=== PATIENT | female | born 1975 | race Caucasian/White ===

== ENCOUNTER 2017-04-23 14:06 | Emergency (ER) | payer OTHER ==
[2017-04-23] MEDS ORDERED: Sodium Chloride 0.9% 10 ML Syringe FLUSH PRN (14:08)
--- NOTE | 2017-04-23 14:15 | EDM.PDOC ---
ED HPI GENERAL MEDICAL PROBLEM - General Chief Complaint: Trauma Stated Complaint: FALL, HIT HEAD ON BLEACHERS Time Seen by Provider: 04/23/17 14:07 Source of Information: Reports: Patient, EMS, EMS Notes Reviewed, Old Records ( [facility] chart/EMR), Other (EMR-[facility]) History Limitations: Reports: No Limitations - History of Present Illness INITIAL COMMENTS - FREE TEXT/NARRATIVE: The patient was brought to the emergency room via basic ambulance transfer and full spinal and cervical immobilization and cervical collar with no other treatment in route. At about 13:30 hours this afternoon the patient was running in the school gym in [place] when she fell and hit the left side of her face on the bleachers with possible brief loss of consciousness, left facial pain, right lateral neck pain, right hip pain, right low back pain, and right shoulder pain. She does remember getting up, however does not remember other details of the accident. She rates her multiple areas of discomfort at 3-5/10. The patient denies any chest pain/pressure, heart flutter, orthostasis, orthopnea, diaphoresis, paresthesias, recent decreased exercise tolerance, or any other anginal-type symptoms. No recent history of abdominal pain, heartburn , nausea, diarrhea, melena, or any food intolerance, including fatty foods, etc. , although she did have some nonspecific mild gross hematochezia about 3 days ago that has resolved. The patient also denies any recent fever, cough, wheezing , dyspnea, etc., although she has had some mild dizziness since the above injury with her Mnire's disease otherwise stable recently with no severe attack for one year. Onset: Today, Sudden Onset Date: 04/23/17 Onset Time: 13:30 Duration: Constant Location: Reports: Head, Face, Neck, Back, Pelvis, Upper Extremity, Right. Denies: Chest, Abdomen, Radiates to Quality: Reports: Ache, Same as Previous Episode, Sharp Severity: Moderate Improves with: Reports: Rest Worsens with: Reports: Movement Context: Reports: Trauma (As above) Associated Symptoms: Reports: Confusion (Brief incidental examination), Headaches. 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: Cervical Collar, Spinal Immobilization - Related Data Allergies Allergy/AdvReac Type Severity Reaction Status Date / Time bee venom protein (honey bee) Allergy Other Verified 04/23/17 14:33 oxycodone Allergy Hallucinati Verified 04/23/17 14:33 ons tomato Allergy GI Verified 04/23/17 14:40 intolerence Home Meds: Home Meds Albuterol [Ventolin HFA] 8 gm INH Q4H PRN 04/23/17 [History] Albuterol/Ipratropium [DuoNeb 3.0-0.5 MG/3 ML] 3 ml NEB QID 04/23/17 [History] Cyclobenzaprine [Flexeril] 10 mg PO TID PRN 04/23/17 [History] EPINEPHrine [Epipen] 0.3 mg IM ONETIME PRN 04/23/17 [History] Furosemide [Lasix] 20 mg PO DAILY 04/23/17 [History] Meclizine [Antivert] 25 mg PO TID PRN 04/23/17 [History] Meloxicam 15 mg PO DAILY 04/23/17 [History] Ondansetron HCl [Zofran] 4 mg PO Q8H PRN 04/23/17 [History] Potassium Chloride 10 meq PO DAILY 04/23/17 [History] Propranolol [Inderal] 10 mg PO DAILY 04/23/17 [History] Ranitidine [Zantac] 150 mg PO BID 04/23/17 [History] SUMAtriptan Succinate [Imitrex] 6 mg SQ ASDIRECTED PRN 04/23/17 [History] traMADol [Ultram] 50 mg PO Q6H PRN 04/23/17 [History] Past Medical History HEENT History: Reports: Allergic Rhinitis, Impaired Vision, Other (See Below). Denies: Cataract, Glaucoma, Hard of Hearing, Macular Degeneration, Retinal Detachment Other HEENT History: Mnire's disease, occasional glasses when driving at night , severe reaction to bee stings with patient carrying EpiPen Cardiovascular History: Reports: Arrhythmia, Other (See Below). Denies: Afib, Aneurysm, Blood Clots/VTE/DVT, CAD, Heart Failure, Heart Murmur, Hypertension, ID, Pulmonary Hypertension, PVD, Syncope Other Cardiovascular History: Chronic dependent edema, sinus bradycardia secondary to medical therapy, mild aortic valve insufficiency and other nonclinical diffuse valvular disease with no pulmonary hypertension by echocardiogram Respiratory History: Reports: Asthma. Denies: Intubation, Previous, PE, Pneumothorax, Sleep Apnea Gastrointestinal History: Reports: Cholelithiasis, GERD, Other (See Below). Denies: Celiac Disease, Chronic Constipation, Chronic Diarrhea, GI Bleed, Hepatitis, Hiatal Hernia, Inflammatory Bowel Disease, Irritable Bowel Syndrome, Jaundice, Pancreatitis, PUD Other Gastrointestinal History: Milk intolerance Genitourinary History: Reports: None. 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 Denies: Endometriosis, Fibroids, Spontaneous : 3 Para: 3 (One delivery at 30 weeks gestation with otherwise full term without other complications during or delivery) LMP (Approximate): Menopausal (Surgical menopause secondary to dysmenorrhea with history of benign ovarian cysts) Musculoskeletal History: Reports: Arthritis, Back Pain, Chronic, Fracture, Neck Pain, Chronic, Osteoarthritis, Other (See Below). Denies: Amputation, Gout, Osteoporosis, RA, SLE Other Musculoskeletal History: Initial right ankle fracture at about age 10 with subsequent Right ankle fracture in 1992 with surgery as below, chronic right knee pain with history of chondromalacia and right patellar subluxation in November 2013 Neurological History: Reports: Headaches, Chronic, Migraines, Other (See Below) . Denies: Cerebral Aneurysms, Concussion, CVA, Head Trauma, MS, Parkinson's, Seizure, TIA Other Neuro History: Beta sienna therapy for her migraines Psychiatric History: Reports: None. Denies: Abuse, Victim of, Addiction, Anxiety, Depression, Psych Hospitalization(s), PTSD, Suicide Attempt Endocrine/Metabolic History: Reports: Obesity/BMI 30+. Denies: Diabetes, Type I , Diabetes, Type II, Hypothyroidism, IDDM Hematologic History: Reports: None. Denies: Anemia, Blood Transfusion(s), Iron Deficiency Immunologic History: Reports: None. Denies: AIDS, HIV, SLE Oncologic (Cancer) History: Reports: None. Denies: Basal Cell Carcinoma, Cervix , Hodgkin's Lymphoma, Leukemia, Lymphoma, Malignant Melanoma, Non-Hodgkin's Lymphoma Dermatologic History: Reports: Urticaria, Other (See Below). Denies: Angiodema , Eczema, Psoriasis Other Dermatologic History: Severe urticaria secondary to bee stings - Infectious Disease History Infectious Disease History: Reports: Chicken Pox, Shingles (Right lower thoracic /upper lumbar shingles in about 1995). Denies: C-Difficile, Measles, Meningitis , Mononucleosis, MRSA, Mumps, Pertussis (Whooping Cough), Rheumatic Fever, Rubella, Scarlet Fever, TB, VRE - Past Surgical History Head Surgeries/Procedures: Reports: None HEENT Surgical History: Reports: Other (See Below). Denies: Adenoidectomy, Cataract Surgery, Eye Surgery, Laser Surgery, LASIK, Myringotomy w Tube(s), Naso -Sinus Surgery, Oral Surgery, Tonsillectomy Other HEENT Surgeries/Procedures: [place] teeth extraction x4 in 1993 Cardiovascular Surgical History: Reports: None. Denies: Varicose Respiratory Surgical History: Reports: None. Denies: Thoracentesis GI Surgical History: Reports: Appendectomy, Cholecystectomy, Other (See Below). Denies: Colonoscopy, Hernia, Abdominal, Hernia, Inguinal, Hernia Repair/Other Other GI Surgeries/Procedures: Laparoscopic cholecystectomy on 01/01/05, appendectomy in 1992 Female Surgical History: Reports: Hysterectomy, Other (See Below). Denies: Breast Biopsy, Tubal Ligation Other Female Surgeries/Procedures: Open partial hysterectomy in 1997 secondary to dysfunctional uterine bleeding Endocrine Surgical History: Reports: None. Denies: Thyroid Biopsy Neurological Surgical History: Reports: None. Denies: C-Spine, Laminectomy, Lumbar Spine, Spinal Fusion, Vertebroplasty Musculoskeletal Surgical History: Reports: Arthroscopic Knee, Arthroscopic Procedure, Other (See Below). Denies: Carpal Tunnel, Ganglion Cyst, Joint Replacement, ORIF, Shoulder Surgery Other Musculoskeletal Surgeries/Procedures:: Right ankle tendon and ligamental surgery in 1992 secondary to a minor ankle fracture, right knee arthroscopic meniscal repairs initially in 2014 then in 2016 Oncologic Surgical History: Reports: None Dermatological Surgical History: Reports: None - Past Imaging History Past Imaging History: Reports: Bone Scan (Limited bone scan of the thoracic and lumbar spines and upper pelvis on 07/01/14, limited bone scan of the lower extremities bilaterally on 08/14/12), Cardiac Echo (Echocardiogram on 01/11/17 with ejection fraction of greater than 70% and only mild nonclinical diffuse valvular disease as above), Mammogram (Last mammogram on 03/07/17), MRI (Last MRI of the right knee on 11/03/13 with previous evaluations on 03/14/11 and 10/18/08) , PFT (Last PFTs on 03/07/17), Ultrasound (Right upper quadrant gallbladder ultrasound on 12/18/07 positive for cholelithiasis, previous negative abdominal ultrasound on 03/20/05, ultrasound of the right forearm on 09/04/06 with diagnosis of lipoma) Social & Family History - Tobacco Use Smoking Status *Q: Never Smoker Smoking Cessation Information Provided To Patient: No Second Hand Smoke Exposure: No Second Hand Smoke Education Provided: No - Caffeine Use Caffeine Use: Reports: Tea (2 Glasses of tea per month). Denies: Coffee, Energy Drinks, Soda - Alcohol Use Alcohol Use History: Yes Days Per Week of Alcohol Use: 2 (No previous DWIs, problems with alcohol abuse, etc.) Number of Drinks Per Day: 3 (Usually mixed drinks or wine) Total Drinks Per Week: 6 Alcohol Use Frequency: Socially - Recreational Drug Use Recreational Drug Use: No Drug Use in Last 12 Months: No Recreational Drug Type: Denies: Amphetamines (Speed), Cocaine, Heroin, Inhalants (Glues, Solvents, Aerosols), LSD (Acid), Marijuana/Hashish, Methamphetamine - Living Situation & Occupation Living situation: Reports: (2002 to her second with no children from this relationship, from first and 2001 with 3 children from that relationship), with Family () 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 Denies: Chills, Diaphoresis, Fever, Weakness Eyes: Denies: Blurred Vision, Drainage, Decreased Acuity, Foreign Body Sensation , Inflammation, Pain, Photophobia, Vision Change Ears: Reports: Dizziness (With head movement and history of Mnire's disease), Pain, Bloody Discharge (Questionable left otorrhea). Denies: Tinnitus, Clear Discharge, Previous Injury Nose: Reports: No Symptoms. Denies: Clots, Congestion, Pain, Bloody Discharge, Clear Discharge, Previous Injury Mouth/Throat: Reports: No Symptoms. Denies: Bleeding, Clots, Lip Swelling, Tongue Swelling, Loose Teeth, Pain, Throat Swelling, Hoarse Voice, Muffled Voice , Difficulty Swallowing, Previous Injury Respiratory: Reports: No Symptoms. Denies: Shortness of Breath, Wheezing, Pleuritic Chest Pain, Cough Cardiovascular: Reports: Edema (Stable chronic dependent), Lightheadedness. Denies: Chest Pain, Irregular Heart Rate, Palpitations, Syncope GI/Abdominal: Reports: Bloody Stool (Mild Gross hematochezia about 3 days ago with spontaneous resolution), Other (Nonspecific right pelvic and right hip pain ). Denies: Abdominal Pain, Constipation, Decreased Appetite, Diarrhea, Hematemesis, Nausea, Vomiting Genitourinary: Reports: No Symptoms. Denies: Dysuria, Hematuria, Incontinence, Painful Urination, Vaginal Bleeding Musculoskeletal: Reports: Neck Pain (Right lateral), Shoulder Pain (Right), Back Pain (Right lumbar). Denies: Arm Pain, Joint Swelling, Muscle Pain, Muscle Stiffness Skin: Reports: Bruising (Left mandibular region as below), Wound (Left ventricular abrasion as below). Denies: Pallor, Diaphoresis Neurological: Reports: Dizziness, Headache, Other (Possible brief loss of consciousness). Denies: Confusion, Numbness, Paresthesia, Seizure, Tingling, Trouble Speaking, Weakness, Change in Speech, Gait Disturbance Psychiatric: Denies: Confusion, Depression, Anxiety, Agitation, Hallucinations ED EXAM, TRAUMA (MAJOR/MULTI) - Physical Exam Exam: See Below Exam Limited By: No Limitations General Appearance: Alert, WD/WN, No Apparent Distress Head: Normocephalic, Facial Ecchymosis (Mild left lateral mandibular/ infraorbital ecchymosis), Facial Swelling (Mild left infraorbital). No: Scalp Lacerations, Scalp Ecchymosis, Scalp Hematoma, Scalp Tenderness, Pedro's Sign, Facial Lacerations, Sinus Tenderness, Raccoon Eyes Eyes: Left Eye: Other (Moderate right infraorbital palpation pain with mild swelling and no evidence of deformity or crepitation), Bilateral Eye: EOMI, Normal Fundi (No nystagmus), PERRL (5 mm diameter bilateral) Ears: Normal Canal, Hearing Grossly Normal, Normal TMs, Auricular Tenderness ( Mild localized palpation pain at the site of the inferior left 0.25 cm in diameter abrasion with minimal bloody spotting). No: Auricular Ecchymosis, Mastoid Swelling, Mastoid Tenderness, Canal Discharge, TM Blood, TM Fluid, TM Perforation Nose: Normal Inspection, Normal Mucousa, No Blood. No: Clear Rhinorrhea Throat/Mouth: Normal Inspection, Normal Lips, Normal Teeth, Normal Gums, Normal Oropharynx, Normal Voice, No Airway Compromise Neck: Full Range of Motion, Normal Alignment, Muscle Spasm (Minimal right lateral), Painful Range of Motion (Minimal), Tenderness (Minimal right lateral palpation pain), Tender Lateral (As above) Cardiovascular: Normal Peripheral Pulses, Regular Rate, Rhythm, No Edema, No Gallop, No JVD, No Murmur, No Rub. No: Gallop/S3, Gallop/S4, Friction Rub Respiratory/Chest: No Respiratory Distress, Lungs Clear, Normal Breath Sounds, No Accessory Muscle Use, Chest Non-Tender. No: Pleural Rub, Retractions, Flail Chest GI/Abdominal: Normal Bowel Sounds, Soft, Non-Tender, No Organomegaly, No Distention, No Abnormal Bruit, No Mass, Pelvis Stable, Other (obese) (Female) Exam: Deferred Rectal (Female) Exam: Normal Exam, Normal Rectal Tone, Heme - Stool. No: Tenderness (No Brice space tenderness) Back: Muscle Spasm (Mild left mid lateral lumbar), Paraspinal Tenderness (Mild lateral lumbar). No: CVA Tenderness (R), CVA Tenderness (L) Neurologic: No Motor/Sensory Deficits, Alert, Normal Mood/Affect, Oriented x 3, Other (Mild incidental amnesia as above, Negative Babinski's, finger to nose, and pronator rotation tests. No evidence of facial paresis, tongue deviation, orthostasis, etc.. Excellent reverse thought processes.) Skin: Warm/Dry, Ecchymosis (As above with additional 1-2 cm mild ecchymosis of the left buttocks). No: Diaphoresis, Pallor, Petechiae - [place] Coma Score Best Eye Response (Agatha): (4) Open Spontaneously Best Verbal Response (Agatha): (5) Oriented Best Motor Response (Agatha): (6) Obeys Commands Agatha Total: 15 EKG INTERPRETATION EKG Date: 04/23/17 Time: 15:55 Rhythm: NSR Rate (beats/min): 59 [place]: normal (Left cardiac axis) P-wave: present QRS: normal (QRS interval 0.08 seconds representing repolarization changes) ST-T: other (T-wave inversion in leads 3 and V1 through V3) QT: normal MA/PQ Interval: 0.15 seconds with pulmonary hypertension by EKG Comparison: no change (Since last EKG on 02/13/12) EKG Interpretation Comments: 1. Questionable stable anterior wall cardiac ischemia 2. No acute ischemic changes 3. Pulmonary hypertension by EKG Course - Vital Signs Last Recorded V/S: Last Vital Signs Temp 36.8 C 04/23/17 15:30 Pulse 66 04/23/17 15:30 Resp 20 04/23/17 15:30 BP 117/71 04/23/17 15:30 Pulse Ox 100 04/23/17 15:30 See Trauma sheet - Orders/Labs/Meds Orders: Active Orders 24 hr Category Date Time Status Cardiac Monitoring [RC] . DIRECTED Care 04/23/17 14:08 Active EKG Documentation Completion [RC] ASDIRECTED Care 04/23/17 14:08 Active Oxygen Therapy, ED [RC] CONTINUOUS Care 04/23/17 14:08 Active Peripheral IV Care [RC] . DIRECTED Care 04/23/17 14:08 Active Pulse Oximetry [RC] CONTINUOUS Care 04/23/17 14:08 Active Up With Assistance [RC] PFP Care 04/23/17 14:08 Active Vital Signs [RC] PFP Care 04/23/17 14:08 Active Nothing per Oral Now Diet [DIET] Diet 04/23/17 Breakfast Active Cervical Spine 1V [CR] Stat Exams 04/23/17 14:08 Ordered Cervical Spine wo Cont [CT] Stat Exams 04/23/17 14:08 Ordered Chest 1V Frontal [CR] Stat Exams 04/23/17 14:08 Ordered Head wo Cont [CT] Stat Exams 04/23/17 14:08 Ordered Hip Min 2V or 3V w Pelvis Rt [CR] Stat Exams 04/23/17 14:16 Ordered Lumbar Spine 2 or 3V [CR] Stat Exams 04/23/17 14:15 Ordered Max Facial Sinus wo Cont [CT] Stat Exams 04/23/17 14:08 Stop Req Shoulder Comp Rt [CR] Stat Exams 04/23/17 14:10 Ordered CULTURE URINE [RM] Urgent Lab 04/23/17 14:08 Uncollected LACTIC ACID [CHEM] Stat Lab 04/23/17 14:08 Ordered Sodium Chloride 0.9% [Saline Flush] Med 04/23/17 14:08 Active 10 ml FLUSH ASDIRECTED PRN Obtain Past Medical Record [OM.PC] Urgent Oth 04/23/17 14:08 Active Peripheral IV Insertion Adult [OM.PC] Stat Oth 04/23/17 14:08 Ordered Resuscitation Status Stat Resus Stat 04/23/17 14:08 Ordered Medication Orders Sodium Chloride (Saline Flush) 10 ml FLUSH ASDIRECTED PRN PRN Reason: Keep Vein Open Labs: Laboratory Tests 04/23/17 04/23/17 04/23/17 Range/Units 15:25 15:25 15:25 WBC 10.5 H (4.0-10.2) K/uL RBC 4.45 (3.77-5.09) M/uL Hgb 13.7 (11.7-15.5) g/dL Hct 41.7 (34.0-46.0) % MCV 93.7 (84.0-98.0) fL MCH 30.8 (28.2-33.3) pg MCHC 32.9 (31.7-36.0) g/dL RDW 12.1 (11.2-14.1) % Plt Count 219 (150-350) K/uL Neut % (Auto) 71.9 (45.0-80.0) % Lymph % (Auto) 20.6 (10.0-50.0) % [place] % (Auto) 5.4 (2.0-14.0) % Eos % (Auto) 1.1 (0.0-5.0) % Baso % (Auto) 1.0 (0.0-2.0) % Neut # (Auto) 7.55 H (1.40-7.00) K/uL Lymph # (Auto) 2.17 (0.50-3.50) K/uL [place] # (Auto) 0.57 (0.00-1.00) K/uL Eos # (Auto) 0.12 (0.00-0.50) K/uL Baso # (Auto) 0.10 (0.00-0.20) K/uL PT 11.4 (9.8-11.7) SEC INR 1.1 APTT 26.6 (23.5-30.0) SEC Sodium 144 (136-145) mmol/L Potassium 3.5 (3.5-5.1) mmol/L Chloride 107 (98-107) mmol/L Carbon Dioxide 28.1 (21.0-32.0) mmol/L BUN 17 (7-18) mg/dL Creatinine 0.69 (0.51-1.17) mg/dL Est Cr Clr Drug Dosing 102.23 mL/min Estimated GFR (MDRD) > 60 mL/min Glucose 89 (74-106) mg/dL Uric Acid 4.5 (2.6-7.2) mg/dL Calcium 9.4 (8.5-10.1) mg/dL Magnesium 1.9 (1.8-2.4) mg/dL Total Bilirubin 0.4 (0.2-1.0) mg/dL AST 13 L (15-37) U/L ALT 16 (12-78) U/L Alkaline Phosphatase 69 (46-116) IU/L Creatine Kinase 64 (26-308) U/L Creatine Kinase Index 0.8 (0.0-2.5) % CK-MB (CK-2) 0.50 (0.00-3.60) ng/mL Troponin I 0.000 (0.000-0.056) ng/mL Total Protein 7.1 (6.4-8.2) g/dL Albumin 3.8 (3.4-5.0) g/dL Amylase 53 (25-115) U/L Lipase 116 (73-393) U/L Specimen Type Urine Color Urine Appearance Urine pH (5.0-9.0) Ur Specific [place] (1.005-1.030) Urine Protein (NEGATIVE) mg/dL Urine Glucose (UA) (NEGATIVE) mg/dL Urine Ketones (NEGATIVE) mg/dL Urine Occult Blood (NEGATIVE) Urine Nitrite (NEGATIVE) Urine Bilirubin (NEGATIVE) Urine Urobilinogen (0.2-1.0) E.U./dL Ur Leukocyte Esterase (NEGATIVE) Urine RBC /HPF Urine WBC /HPF Ur Epithelial Cells /LPF Urine Bacteria (NONE TO FEW) /HPF Urine Opiates Screen (NEGATIVE) Urine Methadone Screen (NEGATIVE) U Acetaminophen Screen (NEGATIVE) Ur Barbiturates Screen (NEGATIVE) Ur Tricyclics Screen (NEGATIVE) Ur Phencyclidine Scrn (NEGATIVE) Ur Amphetamine Screen (NEGATIVE) U Methamphetamines Scrn (NEGATIVE) U Benzodiazepines Scrn (NEGATIVE) U Cocaine Metab Screen (NEGATIVE) U Marijuana (THC) Screen (NEGATIVE) Ethyl Alcohol 0.002 (0.000-0.080) g/dL 04/23/17 04/23/17 Range/Units 15:25 15:25 WBC (4.0-10.2) K/uL RBC (3.77-5.09) M/uL Hgb (11.7-15.5) g/dL Hct (34.0-46.0) % MCV (84.0-98.0) fL MCH (28.2-33.3) pg MCHC (31.7-36.0) g/dL RDW (11.2-14.1) % Plt Count (150-350) K/uL Neut % (Auto) (45.0-80.0) % Lymph % (Auto) (10.0-50.0) % [place] % (Auto) (2.0-14.0) % Eos % (Auto) (0.0-5.0) % Baso % (Auto) (0.0-2.0) % Neut # (Auto) (1.40-7.00) K/uL Lymph # (Auto) (0.50-3.50) K/uL [place] # (Auto) (0.00-1.00) K/uL Eos # (Auto) (0.00-0.50) K/uL Baso # (Auto) (0.00-0.20) K/uL PT (9.8-11.7) SEC INR APTT (23.5-30.0) SEC Sodium (136-145) mmol/L Potassium (3.5-5.1) mmol/L Chloride (98-107) mmol/L Carbon Dioxide (21.0-32.0) mmol/L BUN (7-18) mg/dL Creatinine (0.51-1.17) mg/dL Est Cr Clr Drug Dosing mL/min Estimated GFR (MDRD) mL/min Glucose (74-106) mg/dL Uric Acid (2.6-7.2) mg/dL Calcium (8.5-10.1) mg/dL Magnesium (1.8-2.4) mg/dL Total Bilirubin (0.2-1.0) mg/dL AST (15-37) U/L ALT (12-78) U/L Alkaline Phosphatase (46-116) IU/L Creatine Kinase (26-308) U/L Creatine Kinase Index (0.0-2.5) % CK-MB (CK-2) (0.00-3.60) ng/mL Troponin I (0.000-0.056) ng/mL Total Protein (6.4-8.2) g/dL Albumin (3.4-5.0) g/dL Amylase (25-115) U/L Lipase (73-393) U/L Specimen Type Urincc Urine Color Yellow Urine Appearance Clear Urine pH 5.5 (5.0-9.0) Ur Specific [place] 1.020 (1.005-1.030) Urine Protein Negative (NEGATIVE) mg/dL Urine Glucose (UA) Negative (NEGATIVE) mg/dL Urine Ketones Negative (NEGATIVE) mg/dL Urine Occult Blood Negative (NEGATIVE) Urine Nitrite Negative (NEGATIVE) Urine Bilirubin Negative (NEGATIVE) Urine Urobilinogen 0.2 (0.2-1.0) E.U./dL Ur Leukocyte Esterase Negative (NEGATIVE) Urine RBC 0-5 /HPF Urine WBC 0-5 /HPF Ur Epithelial Cells Rare /LPF Urine Bacteria Rare (NONE TO FEW) /HPF Urine Opiates Screen Negative (NEGATIVE) Urine Methadone Screen Negative (NEGATIVE) U Acetaminophen Screen Negative (NEGATIVE) Ur Barbiturates Screen Negative (NEGATIVE) Ur Tricyclics Screen Negative (NEGATIVE) Ur Phencyclidine Scrn Negative (NEGATIVE) Ur Amphetamine Screen Negative (NEGATIVE) U Methamphetamines Scrn Negative (NEGATIVE) U Benzodiazepines Scrn Negative (NEGATIVE) U Cocaine Metab Screen Negative (NEGATIVE) U Marijuana (THC) Screen Negative (NEGATIVE) Ethyl Alcohol (0.000-0.080) g/dL Microbiology 04/23/17 15:19 Stool Occult Blood (BOOGIE) - Final Stool / Feces NEGATIVE OCCULT BLOOD Meds: Medications Generic Name Dose Route Start Last Admin Trade Name Freq PRN Reason Stop Dose Admin Sodium Chloride 10 ml 04/23/17 14:08 Saline Flush FLUSH ASDIRECTED PRN Keep Vein Open - Radiology Interpretation Free Text/Narrative:: Chest x-ray, portable, shows evidence of mild pulmonary obstructive disease with probable pulmonary hypertension and right middle lobe atelectasis with moderate cardiomegaly and prominence of the proximal aortic arch with no rib fractures, pneumothorax, etc. Additional atelectasis noted in the upper mediastinum with no evidence of CHF or other significant pulmonary infiltrates Cervical spine, 1 view-lateral, was suboptimal with decreased lordosis but no evidence of acute fracture or subluxation X-rays of the pelvis, one view, and 2 views of the right hip, shows evidence of mild osteoarthritic changes but no fracture or subluxation X-rays of the lumbar spine, 3 views, shows mild osteoarthritic changes with no evidence of acute fracture or dislocation. Mild decreased lordosis present X-rays of the right shoulder, complete, shows mild osteoarthritic changes with no evidence of fracture, dislocation, etc. Telephone consultation initially at 15:06 hours with repeat consultation at 15: 15 hours with the radiology department at [facility] with negative preliminary verbal reports of CT of the head without contrast, CT of the cervical spine with no contrast, and CT of the maxillofacial region without contrast with exception of some mild facial contusions lunchroom monitor shows occasional mild sinus bradycardia in the mid to upper 50s with average heart rate in the high 50s to low 60s with no ectopy or arrhythmia CT Results Date: 04/23/17 CT Results Time: 15:06 Departure - Departure Time of Disposition: 16:25 Disposition: Home, Self-Care 01 Condition: good Clinical Impression: Trauma, Peptic reflux disease Asthma Qualifiers: Asthma severity: mild intermittent Asthma complication type: uncomplicated Qualified Code(s): J45.20 - Mild intermittent asthma, uncomplicated Osteoarthritis Qualifiers: Osteoarthritis location: multiple joints Osteoarthritis type: primary Qualified Code(s): M15.0 - Primary generalized (osteo)arthritis Head concussion Qualifiers: Encounter type: initial encounter Loss of consciousness presence/duration: with LOC of 30 min or less Qualified Code(s): S06.0X1A - Concussion with loss of consciousness of 30 minutes or less, initial encounter Contusion Qualifiers: Encounter type: initial encounter Contusion area: head Contusion of head detail : orbital tissues Laterality: left Qualified Code(s): S05.12XA - Contusion of eyeball and orbital tissues, left eye, initial encounter - Discharge Information Instructions: Concussion, Adult, [id number], Contusion, [id number] Referrals: Tonny Ayala, PA [Primary Care Provider] - Forms: ED Department Discharge, Return to Work/School Form Additional Instructions: 1. Follow up with your regular provider in 10-14 days as needed, if symptoms persist. 2. Head precautions as directed-see form. 3. Tylenol 650 mg by mouth every 4 hours when necessary as directed. 4. BenGay or equivalent, heating pad, and/or ice packs as directed. 5. Work excuse- See Form - Problem List & Annotations (1) Head concussion SNOMED Code(s): 820532419 Code(s): S06.0X9A - CONCUSSION W LOSS OF CONSCIOUSNESS OF UNSP DURATION, INIT Status: Acute Priority: High Current Visit: Yes Onset Date: Annotation/Comment:: Trauma code called by this provider with provider in house at time of patient's arrival. Note that IV access was not obtained until after CT scan results were received as above with disorder discontinued. Workmen's Compensation and work excuse forms were completed. Head precautions and activity restrictions were discussed. Qualifiers: Encounter type: initial encounter Loss of consciousness presence/duration: with LOC of 30 min or less Qualified Code(s): S06.0X1A - Concussion with loss of consciousness of 30 minutes or less, initial encounter (2) Trauma SNOMED Code(s): 277994714 Code(s): T14.90 - INJURY, UNSPECIFIED Status: Acute Priority: High Current Visit: Yes Onset Date: 04/23/17 Annotation/Comment:: As above. Patient and her were counseled on with additional discussion of patient' s chronic anterior wall T wave inversions with no recent chest pain or anginal complaints. Note recent echocardiogram as above. Further cardiology consultation and/or workup depending on her clinical course (3) Contusion SNOMED Code(s): 683167800 Code(s): T14.8 - OTHER INJURY OF UNSPECIFIED BODY REGION Status: Acute Priority: High Current Visit: Yes Onset Date: 04/23/17 Annotation/Comment: : Multiple contusions as above particularly in the left facial region as above. Note right shoulder, right hip, right low back pain, neck pain, etc. as above with minor contusions in these areas. Symptomatic relief as per discharge instructions Qualifiers: Encounter type: initial encounter Contusion area: head Contusion of head detail: orbital tissues Laterality: left Qualified Code(s): S05.12XA - Contusion of eyeball and orbital tissues, left eye, initial encounter (4) Asthma SNOMED Code(s): 764276923 Code(s): J45.909 - UNSPECIFIED ASTHMA, UNCOMPLICATED Status: Chronic Priority: Medium Current Visit: Yes Annotation/Comment:: Recent fever her bronchitic-type symptoms. Note that patient does have some borderline leukocytosis likely secondary to stress reaction Qualifiers: Asthma severity: mild intermittent Asthma complication type: uncomplicated Qualified Code(s): J45.20 - Mild intermittent asthma, uncomplicated (5) Osteoarthritis SNOMED Code(s): 259393153 Code(s): M19.90 - UNSPECIFIED OSTEOARTHRITIS, UNSPECIFIED SITE Status: Chronic Priority: Medium Current Visit: Yes Annotation/Comment:: Otherwise stable by patient history Qualifiers: Osteoarthritis location: multiple joints Osteoarthritis type: primary Qualified Code(s): M15.0 - Primary generalized (osteo)arthritis (6) Peptic reflux disease SNOMED Code(s): 73672574 Code(s): K21.9 - GASTRO-ESOPHAGEAL REFLUX DISEASE WITHOUT ESOPHAGITIS Status: Chronic Priority: Medium Current Visit: Yes Annotation/Comment:: Stable by patient history - Problem List Review Problem List Initiated/Reviewed/Updated: Yes - My Orders Last 24 Hours: My Active Orders 04/23/17 14:08 Cardiac Monitoring [RC] . DIRECTED EKG Documentation Completion [RC] ASDIRECTED Oxygen Therapy, ED [RC] CONTINUOUS Peripheral IV Care [RC] . DIRECTED Pulse Oximetry [RC] CONTINUOUS Up With Assistance [RC] PFP Vital Signs [RC] PFP Cervical Spine 1V [CR] Stat Cervical Spine wo Cont [CT] Stat Chest 1V Frontal [CR] Stat Head wo Cont [CT] Stat Max Facial Sinus wo Cont [CT] Stat CULTURE URINE [RM] Urgent LACTIC ACID [CHEM] Stat Sodium Chloride 0.9% [Saline Flush] 10 ml FLUSH ASDIRECTED PRN Obtain Past Medical Record [OM.PC] Urgent Peripheral IV Insertion Adult [OM.PC] Stat Resuscitation Status Stat 04/23/17 14:10 Shoulder Comp Rt [CR] Stat 04/23/17 14:15 Lumbar Spine 2 or 3V [CR] Stat 04/23/17 14:16 Hip Min 2V or 3V w Pelvis Rt [CR] Stat 04/23/17 Breakfast Nothing per Oral Now Diet [DIET] - Assessment/Plan Last 24 Hours: My Active Orders 04/23/17 14:08 Cardiac Monitoring [RC] . DIRECTED EKG Documentation Completion [RC] ASDIRECTED Oxygen Therapy, ED [RC] CONTINUOUS Peripheral IV Care [RC] . DIRECTED Pulse Oximetry [RC] CONTINUOUS Up With Assistance [RC] PFP Vital Signs [RC] PFP Cervical Spine 1V [CR] Stat Cervical Spine wo Cont [CT] Stat Chest 1V Frontal [CR] Stat Head wo Cont [CT] Stat Max Facial Sinus wo Cont [CT] Stat CULTURE URINE [RM] Urgent LACTIC ACID [CHEM] Stat Sodium Chloride 0.9% [Saline Flush] 10 ml FLUSH ASDIRECTED PRN Obtain Past Medical Record [OM.PC] Urgent Peripheral IV Insertion Adult [OM.PC] Stat Resuscitation Status Stat 04/23/17 14:10 Shoulder Comp Rt [CR] Stat 04/23/17 14:15 Lumbar Spine 2 or 3V [CR] Stat 04/23/17 14:16 Hip Min 2V or 3V w Pelvis Rt [CR] Stat 04/23/17 Breakfast Nothing per Oral Now Diet [DIET] Assessment:: As above Plan: As above. Extensive precautions were given to the patient and her , who are in agreement with the treatment plan. See Patient Instructions for further treatment and plan.
[2017-04-23 15:31] VITALS: BP 117/71
[2017-04-23 15:57] LABS: CHLORIDE,CL 107 mmol/L (98-107); SODIUM,NA 144 mmol/L (136-145)
== END 2017-04-23 16:25 | disposition home or self-care (01) ==
LOC: LL.ED 14:06
DX: S06.0X1A Concussion with loss of consciousness of 30 minutes or less, initial encounter (principal); S05.12XA Contusion of eyeball and orbital tissues, left eye, initial encounter; S30.0XXA Contusion of lower back and pelvis, initial encounter; J45.20 Mild intermittent asthma, uncomplicated; M15.0 Primary generalized (osteo)arthritis; K21.9 Gastro-esophageal reflux disease without esophagitis; E66.9 Obesity, unspecified; Z68.37 Body mass index [BMI] 37.0-37.9, adult; Z88.5 Allergy status to narcotic agent; Z91.030 Bee allergy status; Z91.018 Allergy to other foods; Z98.890 Other specified postprocedural states; Z90.49 Acquired absence of other specified parts of digestive tract; Z79.1 Long term (current) use of non-steroidal anti-inflammatories (NSAID); Z79.899 Other long term (current) drug therapy; W01.198A Fall on same level from slipping, tripping and stumbling with subsequent striking against other object, initial encounter; Y93.02 Activity, running; Y92.168 Other place in school dormitory as the place of occurrence of the external cause
CPT/HCPCS: 36415; 70450; 70486; 71010; 72020; 72100; 72125; 73030; 73502; 80053; 80305; 81001; 82150; 82272; 82550; 82553; 83605; 83690; 83735; 84484; 84550; 85025; 85610; 85730; 87086; 93005; 99285; G0480

== ENCOUNTER 2017-08-26 16:47 | Emergency (ER) | payer OTHER ==
[2017-08-26 16:54] VITALS: BP 100/84
--- NOTE | 2017-08-26 17:40 | EDM.PDOC ---
ED HPI GENERAL MEDICAL PROBLEM - General Chief Complaint: Lower Extremity Injury/Pain Stated Complaint: right knee pain Time Seen by Provider: 08/26/17 17:02 Source of Information: Reports: Patient History Limitations: Reports: No Limitations - History of Present Illness INITIAL COMMENTS - FREE TEXT/NARRATIVE: Patient comes to ER with complaint of increased discomfort in right knee that started while she was using elliptical exercise machine this morning. She usually uses the elliptical one hour a day for exercise. No trauma, pain began subtly. Did hear "clicking" in joint this morning. Has had two meniscal repairs in right knee and has history of initial trauma years ago when her foot went through a grate. No new numbness/tingling/weakness in leg. No swelling. No increased warmth or erythema noted. Pain is in "usual" spot which has plagued her in past. Knee has not locked up or given way. Patient has been on low carb diet and is trying to lose weight. Admits to a recent increase in carbs while out socially recently. No other complaints/acute changes otherwise. Right Knee Pain Score (Numeric/FACES): 4 - Related Data Allergies Allergy/AdvReac Type Severity Reaction Status Date / Time bee venom protein (honey bee) Allergy Other Verified 08/26/17 16:54 oxycodone Allergy Hallucinati Verified 08/26/17 16:54 ons tomato Allergy GI Verified 08/26/17 16:54 intolerence Home Meds: Home Meds Albuterol [Ventolin HFA] 8 gm INH Q4H PRN 04/23/17 [History] Albuterol/Ipratropium [DuoNeb 3.0-0.5 MG/3 ML] 3 ml NEB QID PRN 04/23/17 [ History] Cyclobenzaprine [Flexeril] 10 mg PO TID PRN 04/23/17 [History] EPINEPHrine [Epipen] 0.3 mg IM ONETIME PRN 04/23/17 [History] Furosemide [Lasix] 20 mg PO DAILY 04/23/17 [History] Meclizine [Antivert] 25 mg PO TID PRN 04/23/17 [History] Meloxicam 15 mg PO DAILY 04/23/17 [History] Ondansetron HCl [Zofran] 4 mg PO Q8H PRN 04/23/17 [History] Potassium Chloride 10 meq PO DAILY 04/23/17 [History] Propranolol [Inderal] 10 mg PO DAILY 04/23/17 [History] SUMAtriptan Succinate [Imitrex] 6 mg SQ ASDIRECTED PRN 04/23/17 [History] traMADol [Ultram] 50 mg PO Q6H PRN 04/23/17 [History] SUMAtriptan [Imitrex] 25 mg PO Q12H PRN 08/26/17 [History] Past Medical History HEENT History: Reports: Allergic Rhinitis, Impaired Vision, Other (See Below). Denies: Cataract, Glaucoma, Hard of Hearing, Macular Degeneration, Retinal Detachment Other HEENT History: Mnire's disease, occasional glasses when driving at night , severe reaction to bee stings with patient carrying EpiPen Cardiovascular History: Reports: Arrhythmia, Other (See Below). Denies: Afib, Aneurysm, Blood Clots/VTE/DVT, CAD, Heart Failure, Heart Murmur, Hypertension, ND, Pulmonary Hypertension, PVD, Syncope Other Cardiovascular History: Chronic dependent edema, sinus bradycardia secondary to medical therapy, mild aortic valve insufficiency and other nonclinical diffuse valvular disease with no pulmonary hypertension by echocardiogram Respiratory History: Reports: Asthma. Denies: Intubation, Previous, PE, Pneumothorax, Sleep Apnea Gastrointestinal History: Reports: Cholelithiasis, GERD, Other (See Below). Denies: Celiac Disease, Chronic Constipation, Chronic Diarrhea, GI Bleed, Hepatitis, Hiatal Hernia, Inflammatory Bowel Disease, Irritable Bowel Syndrome, Jaundice, Pancreatitis, PUD Other Gastrointestinal History: Milk intolerance Genitourinary History: Reports: None. Denies: Acute Renal Failure, Chronic Renal Insuffiency, Renal Calculus, STD, Urinary Incontinence, UTI, Recurrent IN HOME TUTOR History: Reports: Dysfunctional Uterine Bleeding, . Denies: Endometriosis, Fibroids, Spontaneous Musculoskeletal History: Reports: Arthritis, Back Pain, Chronic, Fracture, Neck Pain, Chronic, Osteoarthritis, Other (See Below). Denies: Amputation, Gout, Osteoporosis, RA, SLE Other Musculoskeletal History: Initial right ankle fracture at about age 10 with subsequent Right ankle fracture in 1992 with surgery as below, chronic right knee pain with history of chondromalacia and right patellar subluxation in November 2013 Neurological History: Reports: Headaches, Chronic, Migraines, Other (See Below) . Denies: Cerebral Aneurysms, Concussion, CVA, Head Trauma, MS, Parkinson's, Seizure, TIA Other Neuro History: Beta sienna therapy for her migraines Psychiatric History: Reports: None. Denies: Abuse, Victim of, Addiction, Anxiety, Depression, Psych Hospitalization(s), PTSD, Suicide Attempt Endocrine/Metabolic History: Reports: Obesity/BMI 30+. Denies: Diabetes, Type I , Diabetes, Type II, Hypothyroidism, IDDM Hematologic History: Reports: None. Denies: Anemia, Blood Transfusion(s), Iron Deficiency Immunologic History: Reports: None. Denies: AIDS, HIV, SLE Oncologic (Cancer) History: Reports: None. Denies: Basal Cell Carcinoma, Cervix , Hodgkin's Lymphoma, Leukemia, Lymphoma, Malignant Melanoma, Non-Hodgkin's Lymphoma Dermatologic History: Reports: Urticaria, Other (See Below). Denies: Angiodema , Eczema, Psoriasis Other Dermatologic History: Severe urticaria secondary to bee stings - Infectious Disease History Infectious Disease History: Reports: Chicken Pox, Shingles (Right lower thoracic /upper lumbar shingles in about 1995). Denies: C-Difficile, Measles, Meningitis , Mononucleosis, MRSA, Mumps, Pertussis (Whooping Cough), Rheumatic Fever, Rubella, Scarlet Fever, TB, VRE - Past Surgical History Head Surgeries/Procedures: Reports: None HEENT Surgical History: Reports: Other (See Below). Denies: Adenoidectomy, Cataract Surgery, Eye Surgery, Laser Surgery, LASIK, Myringotomy w Tube(s), Naso -Sinus Surgery, Oral Surgery, Tonsillectomy Other HEENT Surgeries/Procedures: [place] teeth extraction x4 in 1993 Cardiovascular Surgical History: Reports: None. Denies: Varicose Respiratory Surgical History: Reports: None. Denies: Thoracentesis GI Surgical History: Reports: Appendectomy, Cholecystectomy, Other (See Below). Denies: Colonoscopy, Hernia, Abdominal, Hernia, Inguinal, Hernia Repair/Other Other GI Surgeries/Procedures: Laparoscopic cholecystectomy on 01/01/05, appendectomy in 1992 Female Surgical History: Reports: Hysterectomy, Other (See Below). Denies: Breast Biopsy, Tubal Ligation Other Female Surgeries/Procedures: Open partial hysterectomy in 1997 secondary to dysfunctional uterine bleeding Endocrine Surgical History: Reports: None. Denies: Thyroid Biopsy Neurological Surgical History: Reports: None. Denies: C-Spine, Laminectomy, Lumbar Spine, Spinal Fusion, Vertebroplasty Musculoskeletal Surgical History: Reports: Arthroscopic Knee, Arthroscopic Procedure, Other (See Below). Denies: Carpal Tunnel, Ganglion Cyst, Joint Replacement, ORIF, Shoulder Surgery Other Musculoskeletal Surgeries/Procedures:: Right ankle tendon and ligamental surgery in 1992 secondary to a minor ankle fracture, right knee arthroscopic meniscal repairs initially in 2014 then in 2016 Oncologic Surgical History: Reports: None Dermatological Surgical History: Reports: None - Past Imaging History Past Imaging History: Reports: Bone Scan (Limited bone scan of the thoracic and lumbar spines and upper pelvis on 07/01/14, limited bone scan of the lower extremities bilaterally on 08/14/12), Cardiac Echo (Echocardiogram on 01/11/17 with ejection fraction of greater than 70% and only mild nonclinical diffuse valvular disease as above), Mammogram (Last mammogram on 03/07/17), MRI (Last MRI of the right knee on 11/03/13 with previous evaluations on 03/14/11 and 10/18/08) , PFT (Last PFTs on 03/07/17), Ultrasound (Right upper quadrant gallbladder ultrasound on 12/18/07 positive for cholelithiasis, previous negative abdominal ultrasound on 03/20/05, ultrasound of the right forearm on 09/04/06 with diagnosis of lipoma) Social & Family History - Tobacco Use Smoking Status *Q: Never Smoker Second Hand Smoke Exposure: Yes - Caffeine Use Caffeine Use: Reports: Soda - Alcohol Use Days Per Week of Alcohol Use: 2 (No previous DWIs, problems with alcohol abuse, etc.) Number of Drinks Per Day: 3 (Usually mixed drinks or wine) Total Drinks Per Week: 6 - Recreational Drug Use Recreational Drug Use: No Drug Use in Last 12 Months: No - Living Situation & Occupation Living situation: Reports: (2002 to her second with no children from this relationship, from first and 2001 with 3 children from that relationship), with Family () 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 ED EXAM, GENERAL - Physical Exam Exam: See Below Exam Limited By: No Limitations General Appearance: Alert, WD/WN, No Apparent Distress Eye Exam: Bilateral Eye: EOMI, PERRL Head: Atraumatic, Normocephalic Respiratory/Chest: No Respiratory Distress Extremities: Other (Some tenderness noted with palpation of medial anterior knee near patellar border. No effusion. Knee is stable. No other tenderness noted.No increased warmth or redness noted. Good ROM. No crepitus. ). No: Joint Swelling, Increased Warmth Neurological: Alert, Oriented, Normal Cognition, No Motor/Sensory Deficits, Abnormal Gait (favors right leg slightly when ambulating due to knee discomfort. ) Psychiatric: Normal Affect, Normal Mood Skin Exam: Warm, Dry, Intact, Normal Color, No Rash Course - Vital Signs Last Recorded V/S: Last Vital Signs Temp 36.5 C 08/26/17 16:48 Pulse 68 08/26/17 16:48 Resp 20 08/26/17 16:48 BP 100/84 08/26/17 16:48 Pulse Ox 100 08/26/17 16:48 - Re-Assessments/Exams Free Text/Narrative Re-Assessment/Exam: 08/26/17 19:28 Overuse injury suspected. AT this time recommend conservative treatment. Recommended 3 days of gentle activity (no exercise). Patient has NSAID at home. OK to take Tylenol. Patient is to follow up in one week with primary provider if pain has not improved. Follow up otherwise as needed. Departure - Departure Time of Disposition: 17:38 Disposition: Home, Self-Care 01 Condition: Good Clinical Impression: Right anterior knee pain - Discharge Information Referrals: PCP,Not In Area [Primary Care Provider] - Forms: ED Department Discharge Additional Instructions: Rest/ice/elevate for comfort. OK to take Tylenol to help with pain. Avoid exercise for 2-3 days then advance activity as tolerated. If pain persists, or if knee starts to lock or give way, follow up for re-evaluation.
== END 2017-08-26 17:56 | disposition home or self-care (01) ==
LOC: LL.ED 16:47
DX: M25.561 Pain in right knee (principal); J45.909 Unspecified asthma, uncomplicated; K21.9 Gastro-esophageal reflux disease without esophagitis; M19.90 Unspecified osteoarthritis, unspecified site; G43.909 Migraine, unspecified, not intractable, without status migrainosus; E66.9 Obesity, unspecified; Z91.030 Bee allergy status; Z79.899 Other long term (current) drug therapy; Z90.710 Acquired absence of both cervix and uterus; Z91.018 Allergy to other foods; Z88.5 Allergy status to narcotic agent; Z90.49 Acquired absence of other specified parts of digestive tract; Z90.89 Acquired absence of other organs
CPT/HCPCS: 99283

== ENCOUNTER 2018-03-14 09:21 | Emergency (ER) | payer OTHER ==
[2018-03-14] MEDS ORDERED: Ketorolac 60 MG/2 ML SDV IM ONE (09:51)
[2018-03-14] MEDS ORDERED: Diazepam 5 MG/ML ML Oral Soln 30 ML Bottle PO ONE (09:52)
--- NOTE | 2018-03-14 09:59 | EDM.PDOC ---
ED HPI GENERAL MEDICAL PROBLEM - General Chief Complaint: Back Pain or Injury Stated Complaint: Back Pain Time Seen by Provider: 03/14/18 09:45 Source of Information: Reports: Patient History Limitations: Reports: No Limitations - History of Present Illness INITIAL COMMENTS - FREE TEXT/NARRATIVE: Patient is a 42-year-old with seen in the emergency room with chief complaint of lower back pain this is in the midline of the L5 L4 area no radiation down the legs patient states that she has been up on her feet all week and working for the [employer] with her and this progressively got worse she did see a chiropractor yesterday and today is much worse Onset: Gradual Duration: Day(s):, Getting Worse Location: Reports: Back Quality: Reports: Ache, Throbbing Severity: Moderate Improves with: Reports: None Worsens with: Reports: Movement Context: Reports: Activity Associated Symptoms: Reports: No Other Symptoms Lower Back Pain Score (Numeric/FACES): 10 - Related Data Allergies Allergy/AdvReac Type Severity Reaction Status Date / Time bee venom protein (honey bee) Allergy Other Verified 03/14/18 09:27 oxycodone Allergy Hallucinati Verified 03/14/18 09:27 ons tomato Allergy GI Verified 03/14/18 09:27 intolerence Home Meds: Home Meds Albuterol [Ventolin HFA] 8 gm INH Q4H PRN 04/23/17 [History] Albuterol/Ipratropium [DuoNeb 3.0-0.5 MG/3 ML] 3 ml NEB QID PRN 04/23/17 [ History] Cyclobenzaprine [Flexeril] 10 mg PO TID PRN 04/23/17 [History] EPINEPHrine [Epipen] 0.3 mg IM ONETIME PRN 04/23/17 [History] Furosemide [Lasix] 20 mg PO DAILY 04/23/17 [History] Meclizine [Antivert] 25 mg PO TID PRN 04/23/17 [History] Meloxicam 15 mg PO DAILY 04/23/17 [History] Ondansetron HCl [Zofran] 4 mg PO Q8H PRN 04/23/17 [History] Potassium Chloride 10 meq PO DAILY 04/23/17 [History] Propranolol [Inderal] 10 mg PO DAILY 05/23/17 [History] SUMAtriptan Succinate [Imitrex] 6 mg SQ ASDIRECTED PRN 04/23/17 [History] traMADol [Ultram] 50 mg PO Q6H PRN 04/23/17 [History] SUMAtriptan [Imitrex] 25 mg PO Q12H PRN 08/26/17 [History] Celecoxib [CeleBREX] 200 mg PO DAILY 30 Days #30 cap 03/14/18 [Rx] Cyclobenzaprine [Flexeril] 10 mg PO TID 30 Days #90 tab 03/14/18 [Rx] Past Medical History HEENT History: Reports: Allergic Rhinitis, Impaired Vision, Other (See Below). Denies: Cataract, Glaucoma, Hard of Hearing, Macular Degeneration, Retinal Detachment Other HEENT History: Mnire's disease, occasional glasses when driving at night , severe reaction to bee stings with patient carrying EpiPen Cardiovascular History: Reports: Arrhythmia, Other (See Below). Denies: Afib, Aneurysm, Blood Clots/VTE/DVT, CAD, Heart Failure, Heart Murmur, Hypertension, CA, Pulmonary Hypertension, PVD, Syncope Other Cardiovascular History: Chronic dependent edema, sinus bradycardia secondary to medical therapy, mild aortic valve insufficiency and other nonclinical diffuse valvular disease with no pulmonary hypertension by echocardiogram Respiratory History: Reports: Asthma. Denies: Intubation, Previous, PE, Pneumothorax, Sleep Apnea Gastrointestinal History: Reports: Cholelithiasis, GERD, Other (See Below). Denies: Celiac Disease, Chronic Constipation, Chronic Diarrhea, GI Bleed, Hepatitis, Hiatal Hernia, Inflammatory Bowel Disease, Irritable Bowel Syndrome, Jaundice, Pancreatitis, PUD Other Gastrointestinal History: Milk intolerance Genitourinary History: Reports: None. 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 Denies: Endometriosis, Fibroids, Spontaneous Musculoskeletal History: Reports: Arthritis, Back Pain, Chronic, Fracture, Neck Pain, Chronic, Other (See Below), Osteoarthritis Other Musculoskeletal History: Initial right ankle fracture at about age 10 with subsequent Right ankle fracture in 1992 with surgery as below, chronic right knee pain with history of chondromalacia and right patellar subluxation in November 2013 Neurological History: Reports: Headaches, Chronic, Migraines, Other (See Below) . Denies: Cerebral Aneurysms, Concussion, CVA, Head Trauma, MS, Parkinson's, Seizure, TIA Other Neuro History: Beta sienna therapy for her migraines Psychiatric History: Reports: None. Denies: Abuse, Victim of, Addiction, Anxiety, Depression, Psych Hospitalization(s), PTSD, Suicide Attempt Endocrine/Metabolic History: Reports: Obesity/BMI 30+. Denies: Diabetes, Type I , Diabetes, Type II, Hypothyroidism, IDDM Hematologic History: Reports: None. Denies: Anemia, Blood Transfusion(s), Iron Deficiency Immunologic History: Reports: None. Denies: AIDS, HIV, SLE Oncologic (Cancer) History: Reports: None. Denies: Basal Cell Carcinoma, Cervix , Hodgkin's Lymphoma, Leukemia, Lymphoma, Malignant Melanoma, Non-Hodgkin's Lymphoma Dermatologic History: Reports: Other (See Below), Urticaria Other Dermatologic History: Severe urticaria secondary to bee stings - Infectious Disease History Infectious Disease History: Reports: Chicken Pox, Shingles (Right lower thoracic /upper lumbar shingles in about 1995). Denies: C-Difficile, Measles, Meningitis , Mononucleosis, MRSA, Mumps, Pertussis (Whooping Cough), Rheumatic Fever, Rubella, Scarlet Fever, TB, VRE - Past Surgical History Head Surgeries/Procedures: Reports: None HEENT Surgical History: Reports: Other (See Below). Denies: Adenoidectomy, Cataract Surgery, Eye Surgery, Laser Surgery, LASIK, Myringotomy w Tube(s), Naso -Sinus Surgery, Oral Surgery, Tonsillectomy Other HEENT Surgeries/Procedures: [place] teeth extraction x4 in 1993 Cardiovascular Surgical History: Reports: None. Denies: Varicose Respiratory Surgical History: Reports: None. Denies: Thoracentesis GI Surgical History: Reports: Appendectomy, Cholecystectomy, Other (See Below). Denies: Colonoscopy, Hernia, Abdominal, Hernia, Inguinal, Hernia Repair/Other Other GI Surgeries/Procedures: Laparoscopic cholecystectomy on 01/01/05, appendectomy in 1992 Female Surgical History: Reports: Hysterectomy, Other (See Below). Denies: Breast Biopsy, Tubal Ligation Other Female Surgeries/Procedures: Open partial hysterectomy in 1997 secondary to dysfunctional uterine bleeding Endocrine Surgical History: Reports: None. Denies: Thyroid Biopsy Neurological Surgical History: Reports: None. Denies: C-Spine, Laminectomy, Lumbar Spine, Spinal Fusion, Vertebroplasty Musculoskeletal Surgical History: Reports: Arthroscopic Knee, Arthroscopic Procedure, Other (See Below). Denies: Carpal Tunnel, Ganglion Cyst, Joint Replacement, ORIF, Shoulder Surgery Other Musculoskeletal Surgeries/Procedures:: Right ankle tendon and ligamental surgery in 1992 secondary to a minor ankle fracture, right knee arthroscopic meniscal repairs initially in 2013 then in 2016 Oncologic Surgical History: Reports: None Dermatological Surgical History: Reports: None - Past Imaging History Past Imaging History: Reports: Bone Scan, Cardiac Echo, MRI, Mammogram, PFT, Ultrasound Social & Family History - Tobacco Use Smoking Status *Q: Never Smoker Second Hand Smoke Exposure: Yes - Caffeine Use Caffeine Use: Reports: Soda - Alcohol Use Days Per Week of Alcohol Use: 2 (No previous DWIs, problems with alcohol abuse, etc.) Number of Drinks Per Day: 3 (Usually mixed drinks or wine) Total Drinks Per Week: 6 - Recreational Drug Use Recreational Drug Use: No Drug Use in Last 12 Months: No - Living Situation & Occupation Living situation: Reports: with Family, 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) ED ROS GENERAL - Review of Systems Review Of Systems: See Below Constitutional: Reports: Other (Back pain) HEENT: Reports: No Symptoms Respiratory: Reports: No Symptoms Cardiovascular: Reports: No Symptoms Endocrine: Reports: No Symptoms GI/Abdominal: Reports: No Symptoms : Reports: No Symptoms Musculoskeletal: Reports: No Symptoms Skin: Reports: No Symptoms Neurological: Reports: Other (Lower back pain worse with movement) Psychiatric: Reports: No Symptoms Hematologic/Lymphatic: Reports: No Symptoms Immunologic: Reports: No Symptoms ED EXAM,LOWER BACK PAIN/INJURY - Physical Exam Exam: See Below Exam Limited By: No Limitations General Appearance: Alert, WD/WN, No Apparent Distress Ears: Normal External Exam, Normal Canal, Hearing Grossly Normal, Normal TMs Nose: Normal Inspection, Normal Mucosa, No Blood Throat/Mouth: Normal Inspection, Normal Lips, Normal Teeth, Normal Gums, Normal Oropharynx, Normal Voice, No Airway Compromise Head: Atraumatic, Normocephalic Neck: Normal Inspection, Supple, Non-Tender, Full Range of Motion Respiratory/Chest: No Respiratory Distress, Lungs Clear, Normal Breath Sounds, No Accessory Muscle Use, Chest Non-Tender Cardiovascular: Normal Peripheral Pulses, Regular Rate, Rhythm, No Edema, No Gallop, No JVD, No Murmur, No Rub GI/Abdominal: Normal Bowel Sounds, Soft, Non-Tender, No Organomegaly, No Distention, No Abnormal Bruit, No Mass (Female) Exam: Deferred Rectal (Female) Exam: Deferred Back Exam: Normal Inspection, Decreased Range of Motion, Muscle Spasm, Paraspinal Tenderness, Vertebral Tenderness Extremities: Normal Inspection, Normal Range of Motion, Non-Tender, No Pedal Edema, Normal Capillary Refill Neurological: Alert, Normal Mood/Affect, Normal Dorsiflexion, CN II-XII Intact, Normal Plantar Flexion, Normal Gait, Normal Reflexes, No Motor/Sensory Deficits , Oriented x 3 DTR - Lower Extremities: 1+: Knee (R), Knee (L) Psychiatric: Normal Affect, Normal Mood Skin Exam: Warm, Dry, Intact, Normal Color, No Rash Lymphatic: No Adenopathy Course - Vital Signs Last Recorded V/S: Last Vital Signs Temp 96.2 F 03/14/18 10:26 Pulse 80 03/14/18 10:26 Resp 20 03/14/18 10:26 BP 98/66 03/14/18 10:26 Pulse Ox 97 03/14/18 10:26 - Orders/Labs/Meds Meds: Medications Discontinued Medications Generic Name Dose Route Start Last Admin Trade Name Mateoq PRN Reason Stop Dose Admin Diazepam 10 mg 03/14/18 10:00 03/14/18 10:02 Valium. PO 03/14/18 10:01 10 mg ONETIME ONE Administration Ketorolac Tromethamine 60 mg 03/14/18 09:51 03/14/18 09:57 Toradol IM 03/14/18 09:52 60 mg ONETIME ONE Administration Departure - Departure Time of Disposition: 10:35 Disposition: Home, Self-Care 01 Clinical Impression: Pain in lower back Qualifiers: Chronicity: acute Back pain laterality: midline Sciatica presence: without sciatica Qualified Code(s): M54.5 - Low back pain - Discharge Information Prescriptions: Celecoxib [CeleBREX] 200 mg PO DAILY 30 Days #30 cap Cyclobenzaprine [Flexeril] 10 mg PO TID 30 Days #90 tab Referrals: PCP,Unknown [Primary Care Provider] - Forms: ED Department Discharge Care Plan Goals: Patient will be sent home on Flexeril 10 mg 3 times a day plus Celebrex 200 mg daily follow-up with primary if not better to stay home for the next couple days and apply cold and heat to lower back
[2018-03-14] MEDS ORDERED: Diazepam 5 MG Tab PO ONE (10:00)
[2018-03-14 10:27] VITALS: BP 98/66
== END 2018-03-14 11:05 | disposition home or self-care (01) ==
LOC: LL.ED 09:21
DX: M54.5 Low back pain (principal); J45.909 Unspecified asthma, uncomplicated; E66.9 Obesity, unspecified; Z90.710 Acquired absence of both cervix and uterus; Z91.030 Bee allergy status; Z88.5 Allergy status to narcotic agent; Z91.018 Allergy to other foods; Z79.899 Other long term (current) drug therapy; Z68.29 Body mass index [BMI] 29.0-29.9, adult
CPT/HCPCS: 96372; 99283; A9270-GY; J1885

== ENCOUNTER 2022-03-12 16:23 | Emergency (ER) | payer BC, MEDICAID ==
[2022-03-12 16:36] VITALS: BP 117/86; PULSE 63
[2022-03-12 17:32] LABS: ANION GAP 10.2 meq/L (7-15); CHLORIDE,CL 102 mmol/L (98-107); SODIUM,NA 139 mmol/L (136-145)
[2022-03-12] MEDS ORDERED: Sodium Chloride 0.9% 10 ML Syringe FLUSH PRN (17:37)
[2022-03-12] MEDS ORDERED: Iopamidol 612 MG/ML 100 ML Bottle ONE (18:03)
== END 2022-03-12 19:45 | disposition home or self-care (01) ==
LOC: LL.ED 16:23
DX: K92.1 Melena (principal); N28.1 Cyst of kidney, acquired; R16.0 Hepatomegaly, not elsewhere classified; K21.9 Gastro-esophageal reflux disease without esophagitis; E66.9 Obesity, unspecified; Z68.39 Body mass index [BMI] 39.0-39.9, adult; Z88.5 Allergy status to narcotic agent; Z91.030 Bee allergy status; Z91.018 Allergy to other foods; Z79.899 Other long term (current) drug therapy
CPT/HCPCS: 36415; 74177; 80053; 81003; 82272; 83605; 83690; 85025; 86140; 99284; Q9967